=== PATIENT | male | born 1950 | race Caucasian/White ===

== ENCOUNTER 2017-05-12 09:11 | Day surgery (SDC) | payer MEDICARE, OTHER ==
[~2017-05-12] VITALS: Ht 182.9 cm; Wt 80.9 kg
[2017-05-12 09:35] VITALS: BP 135/77
[2017-05-12] MEDS ORDERED: METF1000 PO (09:48)
[2017-05-12] MEDS ORDERED: METF500T PO (09:48)
[2017-05-12] MEDS ORDERED: LOVA40TA2 PO (09:48)
[2017-05-12] MEDS ORDERED: AMIT100T PO (09:48)
[2017-05-12] MEDS ORDERED: BIVALIRUDIN 250 MG ONE (10:13)
[2017-05-12] MEDS ORDERED: HEPARIN 1,000 UNITS/ML, 10ML ONE (10:13)
[2017-05-12] MEDS ORDERED: NITROGLYCERIN 5 MG/ML, 10ML ONE (10:13)
[2017-05-12] MEDS ORDERED: FENTANYL PF 100 MCG/2ML ONE (10:13)
[2017-05-12] MEDS ORDERED: LIDOCAINE 2%, 20ML ONE (10:13)
[2017-05-12] MEDS ORDERED: MIDAZOLAM 1 MG/ML, 5ML ONE (10:13)
[2017-05-12] MEDS ORDERED: VERAPAMIL 2.5 MG/ML, 2ML ONE (10:13)
[2017-05-12] MEDS ORDERED: TICAGRELOR 90 MG TABLET ONE (10:13)
[2017-05-12] MEDS ORDERED: SODIUM CHLORIDE 0.9% 1,000 ML IV SCH (13:22)
== END 2017-05-12 15:01 ==
LOC: CACL 09:11
PROVIDERS: ATTEND Internal Medicine Cardiovascular Disease
DX: I25.10 Atherosclerotic heart disease of native coronary artery without angina pectoris (principal); I35.0 Nonrheumatic aortic (valve) stenosis; Z79.899 Other long term (current) drug therapy
CPT/HCPCS: 93460; 99156; C1769; C1894; J1644; J2250; J3010; J3490; Q9967; J0583

== ENCOUNTER → 2017-05-20 | Outpatient (CLI) | payer MEDICARE ==
[~2017-05-20] MED LIST: AMIT100T PO; LOVA40TA2 PO; METF1000 PO; METF500T PO
== END | disposition home or self-care (01) ==
LOC: CVU 06:56
PROVIDERS: ATTEND Internal Medicine Cardiovascular Disease
DX: I35.0 Nonrheumatic aortic (valve) stenosis (principal)
CPT/HCPCS: 93306

== ENCOUNTER 2017-06-10 03:53 | Inpatient (IN) | payer MEDICARE ==
[2017-06-09 14:38] LABS: MICROSCOPIC NOT IND
[2017-06-09 14:42] LABS: BASOPHILS # (AUTO) 0.03 x10^3/uL (0-0.1); BASOPHILS % (AUTO) 0 % (0-1); EOSINOPHILS # (AUTO) 0.05 x10^3/uL (0-0.4); EOSINOPHILS % (AUTO) 1 % (1-7); LYMPHOCYTES # (AUTO) 2.54 x10^3/uL (1-3.4); LYMPHOCYTES % (AUTO) 27 % (22-44); MD NO; MEAN CORPUSCULAR HGB CONC 34.3 g/dL (33.2-36.2); MONOCYTES # (AUTO) 0.61 x10^3/uL (0.2-0.8); MONOCYTES % (AUTO) 7 % (2-9); NEUTROPHILS # (AUTO) 6.14 x10^3/uL (1.8-6.8); NEUTROPHILS % (AUTO) 66 % (42-75); PLATELET COUNT 255 x10^3/uL (130-400); RED BLOOD COUNT 4.97 x10^6/uL (4.38-5.82); RED CELL DISTRIBUTION WIDTH 12.6 % (9.4-14.8)
[2017-06-09 14:50] LABS: INTERNATIONAL NORMALIZED RATIO 0.97 (0.93-1.1)
[2017-06-09 14:52] LABS: ALANINE AMINOTRANSFERASE 27 U/L (12-78); ALBUMIN 4.2 g/dL (3.4-5.0); ANION GAP 8 mmol/L (5-15); CHLORIDE 107 mmol/L (98-107); CREATININE 0.85 mg/dL (0.7-1.3)
[2017-06-09 14:55] LABS: ALKALINE PHOSPHATASE 83 U/L (45-117); BILIRUBIN,TOTAL 1.2 mg/dL (0.2-1.0); TOTAL PROTEIN 7.8 g/dL (6.4-8.2)
[2017-06-09 15:27] LABS: HEMOGLOBIN A1C 6.6 % (4.2-6.3)
[~2017-06-10] VITALS: Ht 182.9 cm; Wt 85.5 kg
[~2017-06-10 03:53] MED LIST changes: +OMEG-172 PO
[2017-06-10] MEDS ORDERED: INSULIN LISPRO 100 UNITS/ML, PEN SQ-INSULIN SCH (04:30)
[2017-06-10] MEDS ORDERED: CHLORHEXIDINE 15 ML BOTTLE MM SCH (04:30)
[2017-06-10 06:01] VITALS: BP_SYST 120; BP_SYST 134; BP_DIAS 73; BP_DIAS 79
[2017-06-10 06:47] VITALS: BP 142/89
[2017-06-10] MEDS ORDERED: HEPARIN 1,000 UNITS/ML, 10ML ONE (07:50)
[2017-06-10] MEDS ORDERED: PAPAVERINE 30 MG/ML, 2ML ONE (07:50)
[2017-06-10] MEDS: SODIUM CHLORIDE FLUSH 10ML SYR IVF SCH ×2 (07:59→19:39)
[2017-06-10] MEDS: MUPIROCIN OINT 2%, 22GM TP SCH ×2 (08:01→20:04)
[2017-06-10] MEDS ORDERED: SUFentanil 50 MCG/ML, 5ML ONE (08:47)
[2017-06-10] MEDS ORDERED: MIDAZOLAM 10MG/2 ML ONE (08:47)
[2017-06-10] MEDS ORDERED: PAPAVERINE 30 MG/ML, 2ML IV ONE (10:26)
[2017-06-10] MEDS ORDERED: HEPARIN 1,000 UNITS/ML, 10ML IV ONE (10:27)
[2017-06-10] MEDS ORDERED: ALBUMIN HUMAN 5% 500 ML IV PRN (10:30)
[2017-06-10] MEDS ORDERED: VANCOMYCIN 1,200 MG in SODIUM CHLORIDE 0.9% 250 ML IV PRN (10:30)
[2017-06-10] MEDS ORDERED: MANNITOL PMX 20% 500 ML IVPB PRN (10:30)
[2017-06-10] MEDS ORDERED: PHENYLEPHRINE 10 MG in SODIUM CHLORIDE 0.9% 249 ML IV PRN ×2 (10:30→10:31)
[2017-06-10] MEDS ORDERED: POTASSIUM CHLORIDE 80 MEQ, SODIUM BICARBONATE 8.4% 10 MEQ, MAGNESIUM SULFATE 0.5 GM, LI... IV PRN (10:30)
[2017-06-10] MEDS ORDERED: EPINEPHRINE 2 MG in SODIUM CHLORIDE 0.9% 248 ML IV SCH (10:30)
[2017-06-10] MEDS ORDERED: CEFUROXIME 1.5 GM in SODIUM CHLORIDE 0.9% 100 ML IVPB PRN (10:30)
[2017-06-10] MEDS ORDERED: DEXMEDETOMIDINE 200 MCG in SODIUM CHLORIDE 0.9% 48 ML IV SCH (10:30)
[2017-06-10] MEDS ORDERED: REGULAR INSULIN 62.5 UNITS in SODIUM CHLORIDE 0.9% 249.375 ML IV PRN ×2 (10:30→10:31)
[2017-06-10] MEDS ORDERED: DOBUTAMINE 250 MG in SODIUM CHLORIDE 0.9% 230 ML IV PRN (10:31)
[2017-06-10] MEDS ORDERED: VASOPRESSIN 50 UNIT in SODIUM CHLORIDE 0.9% 250 ML IV PRN (10:31)
[2017-06-10] MEDS ORDERED: DEXMEDETOMIDINE 200 MCG in SODIUM CHLORIDE 0.9% 48 ML IV PRN (10:31)
[2017-06-10] MEDS ORDERED: NITROGLYCERIN/D5W PMX 250 ML IV PRN (10:31)
[2017-06-10] MEDS ORDERED: SODIUM CHLORIDE 0.9% 1,000 ML IV PRN (10:31)
[2017-06-10] MEDS ORDERED: PROTAMINE SULFATE 10 MG/ML, 25ML ONE (10:42)
[2017-06-10] MEDS ORDERED: ROCURONIUM 10MG/ML,5ML ONE ×2 (10:43)
[2017-06-10] MEDS ORDERED: PROPOFOL 10 MG/ML, 20ML ONE (10:43)
[2017-06-10] MEDS ORDERED: AMINOCAPROIC ACID 250 MG/ML, 20ML ONE ×2 (10:45)
[2017-06-10] MEDS ORDERED: EPINEPHRINE 1 MG/ML, 1ML ONE (10:46)
[2017-06-10] MEDS ORDERED: PHENYLEPHRINE 10 MG/ML ONE (10:46)
[2017-06-10] MEDS ORDERED: EPINEPHRINE 2 MG in SODIUM CHLORIDE 0.9% 248 ML IV PRN (11:00)
[2017-06-10] MEDS ORDERED: DEXTROSE 50%, 50ML SYRINGE IVPush PRN (11:00)
[2017-06-10] MEDS ORDERED: DEXTROSE 4 GM TAB.CHEW PO PRN (11:00)
[2017-06-10] MEDS ORDERED: LACTATED RINGERS 1,000 ML IV PRN (11:00)
[2017-06-10] MEDS ORDERED: PROCHLORPERAZINE 5 MG/ML, 2ML IVPush PRN (11:00)
[2017-06-10] MEDS ORDERED: MIDAZOLAM 1 MG/ML, 5ML IVPush PRN (11:00)
[2017-06-10] MEDS ORDERED: GLUCAGON 1 MG IM PRN (11:00)
[2017-06-10] MEDS ORDERED: ACETAMINOPHEN 650 MG SUPP PR PRN (11:00)
[2017-06-10] MEDS ORDERED: ONDANSETRON ODT 4 MG PO PRN (11:00)
[2017-06-10] MEDS ORDERED: SODIUM BICARB 8.4%, 50ML SYRINGE IV PRN (11:00)
[2017-06-10] MEDS ORDERED: ACETAMINOPHEN 325 MG TABLET PO PRN (11:00)
[2017-06-10] MEDS ORDERED: BISACODYL 5 MG EC TABLET PO PRN (11:00)
[2017-06-10] MEDS ORDERED: INSULIN REGULAR 100 UNITS/ML, 3ML VIAL IVPush PRN (11:00)
[2017-06-10] MEDS ORDERED: BISACODYL 10 MG SUPP PR PRN (11:00)
[2017-06-10] MEDS: INSULIN LISPRO 100 UNITS/ML, PEN SQ-INSULIN SCH ×3 (11:00→21:35)
[2017-06-10] MEDS: DOCUSATE 100 MG CAPSULE PO SCH ×2 (11:23→19:39)
[2017-06-10] MEDS: KSCALE TO 4.5 IV SCH ×2 (12:00→18:00)
[2017-06-10] MEDS ORDERED: CALCIUM CHLORIDE 10%, 10ML SYR ONE (12:05)
[2017-06-10] MEDS ORDERED: VASOPRESSIN 20 UNIT/ML, 1ML ONE (12:35)
[2017-06-10] MEDS ORDERED: ALBUMIN HUMAN 25% 50 ML ONE (12:51)
[2017-06-10] MEDS ORDERED: LIDOCAINE 2% 100MG/5ML SYRINGE ONE (12:51)
[2017-06-10] MEDS ORDERED: methylPREDNISolone SOD SUCC 125 MG/2 ML ONE (12:52)
[2017-06-10] MEDS ORDERED: HEPARIN 1,000 UNITS/ML, 30ML ONE (12:53)
[2017-06-10] MEDS ORDERED: SODIUM BICARB 8.4%, 50ML SYRINGE ONE (12:53)
[2017-06-10] MEDS ORDERED: SODIUM BICARBONATE 1 MEQ/ML, 50ML VIAL ONE (12:53)
[2017-06-10 13:11] LABS: GLUCOSE BY BLOOD GAS ANALYZER 150 mg/dL (70-110); HEMOGLOBIN BY BLOOD GAS ANALYZ 11.4 g/dL (14.0-18.0); POTASSIUM BY BLOOD GAS ANALYZR 3.9 mmol/L (3.6-5.5)
[2017-06-10] MEDS ORDERED: POTASSIUM CHLORIDE PMX 100 ML IV ONE (13:30)
[2017-06-10] MEDS: MAGNESIUM SULFATE 1 GM in SODIUM CHLORIDE 0.9% 50 ML IVPB SCH (13:36)
[2017-06-10] MEDS: morphine SULFATE 10 MG/ML, 1ML IVPush PRN ×2 (15:19→17:59)
[2017-06-10] MEDS: OXYcodone IR 5MG TABLET PO PRN (16:54)
[2017-06-10] MEDS: ONDANSETRON 2MG/ML, 2ML IVPush PRN ×2 (17:54→23:52)
[2017-06-10] MEDS ORDERED: MORPHINE SULFATE 4 MG/ML, 1ML ONE (17:58)
[2017-06-10] MEDS: VANCOMYCIN 1,200 MG in SODIUM CHLORIDE 0.9% 250 ML IVPB SCH (18:31)
[2017-06-10] MEDS: MORPHINE SULFATE 4 MG/ML, 1ML IVPush PRN ×3 (20:04→23:31)
[2017-06-10] MEDS ORDERED: SODIUM CHLORIDE FLUSH 10ML SYR IVF SCH (21:00)
[2017-06-10] MEDS: MUPIROCIN OINT 2%, 22GM NAS SCH (21:00)
[2017-06-10] MEDS: HYDROcodone/APAP 5/325 TABLET PO PRN (21:35)
[2017-06-11] MEDS: INSULIN LISPRO 100 UNITS/ML, PEN SQ-INSULIN SCH ×4 (00:06→16:07)
[2017-06-11] MEDS: HYDROcodone/APAP 5/325 TABLET PO PRN ×6 (00:24→16:20)
[2017-06-11] MEDS ORDERED: MIDAZOLAM 1 MG/ML, 2ML ONE (00:34)
[2017-06-11] MEDS ORDERED: POTASSIUM CHLORIDE PMX 100 ML IV ONE (01:00)
[2017-06-11] MEDS: OXYcodone IR 5MG TABLET PO PRN ×6 (02:05→20:44)
[2017-06-11] MEDS: KSCALE TO 4.5 IV SCH ×2 (04:30)
[2017-06-11 05:10] LABS: MEAN CORPUSCULAR HEMOGLOBIN 32.5 pg (27.5-34.5); MEAN CORPUSCULAR VOLUME 95.8 fL (81-97); MEAN PLATELET VOLUME 7.6 fL (7.4-10.4); PLATELET COUNT 125 x10^3/uL (130-400); RED BLOOD COUNT 3.67 x10^6/uL (4.38-5.82); RED CELL DISTRIBUTION WIDTH 12.7 % (9.4-14.8)
[2017-06-11 05:24] LABS: CHLORIDE 111 mmol/L (98-107)
[2017-06-11 05:30] LABS: BASOPHILS # (AUTO) 0.01 x10^3/uL (0-0.1); BASOPHILS % (AUTO) 0 % (0-1); EOSINOPHILS % (AUTO) 0 % (1-7); LYMPHOCYTES # (AUTO) 0.98 x10^3/uL (1-3.4); LYMPHOCYTES % (AUTO) 6 % (22-44); MD SCAN; MONOCYTES # (AUTO) 1.58 x10^3/uL (0.2-0.8); MONOCYTES % (AUTO) 9 % (2-9); NEUTROPHILS # (AUTO) 14.95 x10^3/uL (1.8-6.8); NEUTROPHILS % (AUTO) 85 % (42-75)
[2017-06-11 05:31] LABS: ALBUMIN 3.4 g/dL (3.4-5.0); ANION GAP 9 mmol/L (5-15); CALCIUM 7.7 mg/dL (8.5-10.1); CREATININE 0.65 mg/dL (0.7-1.3)
[2017-06-11] MEDS: VANCOMYCIN 1,200 MG in SODIUM CHLORIDE 0.9% 250 ML IVPB SCH (06:08)
[2017-06-11 06:39] LABS: INTERNATIONAL NORMALIZED RATIO 1.11 (0.93-1.1); PROTHROMBIN TIME 11.4 Seconds (9.6-11.5)
[2017-06-11] MEDS: ASPIRIN 81 MG TABLET EC PO SCH (08:07)
[2017-06-11] MEDS: DOCUSATE 100 MG CAPSULE PO SCH ×2 (08:07→20:38)
[2017-06-11] MEDS: MUPIROCIN OINT 2%, 22GM TP SCH (08:08)
[2017-06-11] MEDS: MUPIROCIN OINT 2%, 22GM NAS SCH ×2 (08:08→20:38)
[2017-06-11] MEDS: SODIUM CHLORIDE FLUSH 10ML SYR IVF SCH ×3 (08:10→20:38)
[2017-06-11] MEDS ORDERED: DEXTROSE 50%, 50ML SYRINGE IVPush PRN (08:30)
[2017-06-11] MEDS ORDERED: DEXTROSE 4 GM TAB.CHEW PO PRN (08:30)
[2017-06-11] MEDS ORDERED: GLUCAGON 1 MG IM PRN (08:30)
[2017-06-11] MEDS: METOPROLOL TARTRATE 25 MG TABLET PO SCH ×2 (09:00→17:59)
[2017-06-11] MEDS: WARFARIN BIOPROSTHETIC VALVE PROTOCOL 2-3 XX SCH (09:00)
[2017-06-11] MEDS ORDERED: POTASSIUM CHLORIDE 10 MEQ TABLET.ER ONE (09:28)
[2017-06-11] MEDS ORDERED: FUROSEMIDE 20 MG TABLET ONE (09:28)
[2017-06-11] MEDS ORDERED: METOPROLOL SUCCINATE 25 MG TAB.ER.24H ONE ×2 (09:29→17:49)
[2017-06-11] MEDS ORDERED: POTASSIUM CHLORIDE 10 MEQ TABLET.ER PO SCH (09:30)
[2017-06-11] MEDS ORDERED: FUROSEMIDE 20 MG TABLET PO ONE (09:30)
[2017-06-11] MEDS: POTASSIUM CHLORIDE 10 MEQ TABLET.ER PO SCH (09:33)
[2017-06-11] MEDS: MAGNESIUM SULFATE 1 GM in SODIUM CHLORIDE 0.9% 50 ML IVPB SCH (11:42)
[2017-06-11] MEDS ORDERED: AMLODIPINE 5 MG TABLET PO ONE (12:00)
[2017-06-11] MEDS ORDERED: AMLODIPINE 5 MG TABLET ONE (12:04)
[2017-06-11] MEDS: CHLORHEXIDINE 15 ML BOTTLE MM SCH ×2 (12:08→20:45)
[2017-06-11] MEDS ORDERED: FUROSEMIDE 20 MG TABLET PO SCH (17:00)
[2017-06-11] MEDS ORDERED: FUROSEMIDE 40 MG/4 ML IV SCH (17:00)
[2017-06-11] MEDS ORDERED: WARFARIN 5 MG TABLET PO-COUM ONE (18:00)
[2017-06-11] MEDS ORDERED: INSULIN REGULAR 100 UNITS/ML, 3ML VIAL IVPush PRN (18:30)
[2017-06-11] MEDS ORDERED: AMITRIPTYLINE 25 MG TABLET ONE (20:05)
[2017-06-11 20:09] VITALS: BP 122/72
[2017-06-11] MEDS: LOVASTATIN 40 MG TABLET PO SCH (20:40)
[2017-06-11] MEDS ORDERED: SODIUM CHLORIDE FLUSH 10ML SYR IVF SCH (21:00)
[2017-06-11] MEDS ORDERED: AMITRIPTYLINE 100 MG TABLET PO SCH (21:00)
[2017-06-12] MEDS: OXYcodone IR 5MG TABLET PO PRN ×5 (01:49→19:58)
[2017-06-12] MEDS: METOPROLOL TARTRATE 25 MG TABLET PO SCH ×2 (05:17→17:31)
[2017-06-12 05:48] LABS: BASOPHILS # (AUTO) 0.02 x10^3/uL (0-0.1); BASOPHILS % (AUTO) 0 % (0-1); EOSINOPHILS % (AUTO) 0 % (1-7); INTERNATIONAL NORMALIZED RATIO 1.11 (0.93-1.1); LYMPHOCYTES % (AUTO) 10 % (22-44); MD NO; MEAN CORPUSCULAR HEMOGLOBIN 33.3 pg (27.5-34.5); MEAN CORPUSCULAR HGB CONC 34.1 g/dL (33.2-36.2); MEAN CORPUSCULAR VOLUME 97.4 fL (81-97); MEAN PLATELET VOLUME 7.4 fL (7.4-10.4); MONOCYTES # (AUTO) 1.16 x10^3/uL (0.2-0.8); MONOCYTES % (AUTO) 8 % (2-9); NEUTROPHILS # (AUTO) 11.74 x10^3/uL (1.8-6.8); NEUTROPHILS % (AUTO) 81 % (42-75); PLATELET COUNT 114 x10^3/uL (130-400); PROTHROMBIN TIME 11.4 Seconds (9.6-11.5); RED BLOOD COUNT 3.63 x10^6/uL (4.38-5.82); RED CELL DISTRIBUTION WIDTH 13.1 % (9.4-14.8)
[2017-06-12 05:54] LABS: ANION GAP 5 mmol/L (5-15); CALCIUM 8.3 mg/dL (8.5-10.1); CHLORIDE 106 mmol/L (98-107)
[2017-06-12 05:57] LABS: CREATININE 0.71 mg/dL (0.7-1.3)
[2017-06-12 06:45] VITALS: BP 129/79
[2017-06-12] MEDS: INSULIN LISPRO 100 UNITS/ML, PEN SQ-INSULIN SCH ×4 (08:30→20:06)
[2017-06-12] MEDS: POTASSIUM CHLORIDE 10 MEQ TABLET.ER PO SCH ×2 (08:31→17:30)
[2017-06-12] MEDS: FUROSEMIDE 20 MG/2 ML IV SCH ×2 (08:31→17:32)
[2017-06-12] MEDS: DOCUSATE 100 MG CAPSULE PO SCH ×2 (08:32→19:56)
[2017-06-12] MEDS: SODIUM CHLORIDE FLUSH 10ML SYR IVF SCH ×2 (08:32→19:56)
[2017-06-12] MEDS: metFORMIN 500 MG TABLET PO SCH ×2 (08:32→19:57)
[2017-06-12] MEDS: ASPIRIN 81 MG TABLET EC PO SCH (08:32)
[2017-06-12] MEDS: WARFARIN BIOPROSTHETIC VALVE PROTOCOL 2-3 XX SCH (08:33)
[2017-06-12] MEDS: MAGNESIUM HYDROXIDE 8%, 30ML UDC PO PRN (08:37)
[2017-06-12] MEDS: MUPIROCIN OINT 2%, 22GM NAS SCH ×2 (08:38→20:06)
[2017-06-12] MEDS: HYDROcodone/APAP 5/325 TABLET PO PRN ×2 (10:52→17:29)
[2017-06-12] MEDS: MAGNESIUM SULFATE 1 GM in SODIUM CHLORIDE 0.9% 50 ML IVPB SCH (11:19)
[2017-06-12] MEDS: CHLORHEXIDINE 15 ML BOTTLE MM SCH ×2 (11:20→19:57)
[2017-06-12 14:00] VITALS: BP 124/78
[2017-06-12] MEDS ORDERED: WARFARIN 5 MG TABLET PO-COUM ONE (18:00)
[2017-06-12 19:53] VITALS: BP 113/73
[2017-06-12] MEDS: LOVASTATIN 40 MG TABLET PO SCH (19:57)
[2017-06-12] MEDS: AMITRIPTYLINE 50 MG TABLET PO SCH (19:57)
[2017-06-13] MEDS: OXYcodone IR 5MG TABLET PO PRN ×3 (03:21→21:04)
[2017-06-13 03:22] VITALS: BP 148/83
[2017-06-13 04:00] LABS: ANION GAP 10 mmol/L (5-15); CALCIUM 8.3 mg/dL (8.5-10.1); CHLORIDE 103 mmol/L (98-107); CREATININE 0.79 mg/dL (0.7-1.3)
[2017-06-13 04:09] LABS: BASOPHILS # (AUTO) 0.02 x10^3/uL (0-0.1); BASOPHILS % (AUTO) 0 % (0-1); EOSINOPHILS # (AUTO) 0.01 x10^3/uL (0-0.4); EOSINOPHILS % (AUTO) 0 % (1-7); LYMPHOCYTES # (AUTO) 1.71 x10^3/uL (1-3.4); LYMPHOCYTES % (AUTO) 14 % (22-44); MD SCAN; MEAN CORPUSCULAR HEMOGLOBIN 33.3 pg (27.5-34.5); MEAN CORPUSCULAR HGB CONC 34.3 g/dL (33.2-36.2); MEAN CORPUSCULAR VOLUME 97.1 fL (81-97); MEAN PLATELET VOLUME 7.7 fL (7.4-10.4); MONOCYTES # (AUTO) 1.08 x10^3/uL (0.2-0.8); MONOCYTES % (AUTO) 9 % (2-9); NEUTROPHILS # (AUTO) 9.86 x10^3/uL (1.8-6.8); NEUTROPHILS % (AUTO) 78 % (42-75); PLATELET COUNT 120 x10^3/uL (130-400)
[2017-06-13] MEDS: METOPROLOL TARTRATE 25 MG TABLET PO SCH ×2 (05:19→17:30)
[2017-06-13] MEDS: HYDROcodone/APAP 5/325 TABLET PO PRN ×2 (05:19→17:43)
[2017-06-13 06:33] VITALS: BP 127/76
[2017-06-13] MEDS: INSULIN LISPRO 100 UNITS/ML, PEN SQ-INSULIN SCH ×4 (07:00→21:05)
[2017-06-13 08:59] LABS: INTERNATIONAL NORMALIZED RATIO 1.32 (0.93-1.1); PROTHROMBIN TIME 13.5 Seconds (9.6-11.5)
[2017-06-13] MEDS: WARFARIN BIOPROSTHETIC VALVE PROTOCOL 2-3 XX SCH (09:00)
[2017-06-13] MEDS: ASPIRIN 81 MG TABLET EC PO SCH (09:58)
[2017-06-13] MEDS: metFORMIN 500 MG TABLET PO SCH ×2 (09:58→20:56)
[2017-06-13] MEDS: DOCUSATE 100 MG CAPSULE PO SCH ×2 (09:58→20:56)
[2017-06-13] MEDS: POTASSIUM CHLORIDE 10 MEQ TABLET.ER PO SCH ×2 (09:58→17:29)
[2017-06-13] MEDS: MUPIROCIN OINT 2%, 22GM NAS SCH ×2 (09:59→21:05)
[2017-06-13] MEDS: FUROSEMIDE 20 MG/2 ML IV SCH ×2 (09:59→17:29)
[2017-06-13] MEDS: MAGNESIUM HYDROXIDE 8%, 30ML UDC PO PRN (09:59)
[2017-06-13] MEDS: SODIUM CHLORIDE FLUSH 10ML SYR IVF SCH (10:00)
[2017-06-13] MEDS: LISINOPRIL 5 MG TABLET PO SCH (10:03)
[2017-06-13 13:44] VITALS: BP 114/72
[2017-06-13] MEDS ORDERED: WARFARIN 5 MG TABLET PO-COUM ONE (18:00)
[2017-06-13 19:36] VITALS: BP 119/75
[2017-06-13] MEDS: LOVASTATIN 40 MG TABLET PO SCH (20:56)
[2017-06-13] MEDS: AMITRIPTYLINE 50 MG TABLET PO SCH (20:56)
[2017-06-14 01:38] VITALS: BP 121/74
[2017-06-14] MEDS: SODIUM CHLORIDE FLUSH 10ML SYR IVF SCH ×2 (01:47→08:52)
[2017-06-14] MEDS: OXYcodone IR 5MG TABLET PO PRN ×2 (04:01→08:50)
[2017-06-14 05:31] LABS: INTERNATIONAL NORMALIZED RATIO 1.62 (0.93-1.1); PROTHROMBIN TIME 16.7 Seconds (9.6-11.5)
[2017-06-14 05:38] LABS: ANION GAP 8 mmol/L (5-15); CALCIUM 7.9 mg/dL (8.5-10.1); CHLORIDE 105 mmol/L (98-107); CREATININE 0.71 mg/dL (0.7-1.3)
[2017-06-14] MEDS: METOPROLOL TARTRATE 25 MG TABLET PO SCH (05:45)
[2017-06-14 06:00] LABS: BASOPHILS # (AUTO) 0.03 x10^3/uL (0-0.1); BASOPHILS % (AUTO) 1 % (0-1); EOSINOPHILS # (AUTO) 0.02 x10^3/uL (0-0.4); EOSINOPHILS % (AUTO) 0 % (1-7); LYMPHOCYTES # (AUTO) 1.63 x10^3/uL (1-3.4); LYMPHOCYTES % (AUTO) 21 % (22-44); MD NO; MEAN CORPUSCULAR HEMOGLOBIN 32.9 pg (27.5-34.5); MEAN CORPUSCULAR HGB CONC 34.1 g/dL (33.2-36.2); MEAN CORPUSCULAR VOLUME 96.5 fL (81-97); MEAN PLATELET VOLUME 7.6 fL (7.4-10.4); MONOCYTES # (AUTO) 0.83 x10^3/uL (0.2-0.8); MONOCYTES % (AUTO) 11 % (2-9); NEUTROPHILS # (AUTO) 5.13 x10^3/uL (1.8-6.8); NEUTROPHILS % (AUTO) 67 % (42-75); PLATELET COUNT 132 x10^3/uL (130-400); RED BLOOD COUNT 3.43 x10^6/uL (4.38-5.82); RED CELL DISTRIBUTION WIDTH 12.7 % (9.4-14.8)
[2017-06-14] MEDS: INSULIN LISPRO 100 UNITS/ML, PEN SQ-INSULIN SCH ×2 (07:00→11:10)
[2017-06-14 07:20] VITALS: BP 125/80
[2017-06-14] MEDS: LISINOPRIL 5 MG TABLET PO SCH (08:51)
[2017-06-14] MEDS: MUPIROCIN OINT 2%, 22GM NAS SCH (08:51)
[2017-06-14] MEDS: POTASSIUM CHLORIDE 10 MEQ TABLET.ER PO SCH (08:52)
[2017-06-14] MEDS: DOCUSATE 100 MG CAPSULE PO SCH (08:52)
[2017-06-14] MEDS: WARFARIN BIOPROSTHETIC VALVE PROTOCOL 2-3 XX SCH (08:52)
[2017-06-14] MEDS: ASPIRIN 81 MG TABLET EC PO SCH (08:52)
[2017-06-14] MEDS: metFORMIN 500 MG TABLET PO SCH (08:52)
[2017-06-14] MEDS: FUROSEMIDE 20 MG/2 ML IV SCH (08:52)
[2017-06-14] MEDS ORDERED: FURO10VI37 PO (09:25)
[2017-06-14] MEDS ORDERED: POTA10TA5 PO (09:25)
[2017-06-14] MEDS ORDERED: ASPI-621 PO (09:25)
[2017-06-14] MEDS ORDERED: METO25TA35 PO (09:25)
[2017-06-14] MEDS ORDERED: LISI5TAB7 PO (09:25)
[2017-06-14] MEDS ORDERED: OXYC5TAB3 PO (09:25)
[2017-06-14] MEDS ORDERED: Warfarin Biopros Vlve Protocol PO (09:25)
[2017-06-14] MEDS: HYDROcodone/APAP 5/325 TABLET PO PRN (11:04)
== END 2017-06-14 11:37 | disposition home or self-care (01) | DRG 219 ==
LOC: 5SO 03:53 → CSU 09:22 → 5SO 06-11 18:45
PROVIDERS: ADMIT Thoracic Surgery (Cardiothoracic Vascular Surgery); ATTEND Thoracic Surgery (Cardiothoracic Vascular Surgery)
PROC: 021009W Bypass Coronary Artery, One Artery from Aorta with Autologous Venous Tissue, Open Approach (ICD-10-PCS; 2017-06-10)
PROC: 5A1221Z Performance of Cardiac Output, Continuous (ICD-10-PCS; 2017-06-10)
PROC: 02RF08Z Replacement of Aortic Valve with Zooplastic Tissue, Open Approach (ICD-10-PCS; principal; 2017-06-10 10:30)
PROC: 06BP4ZZ Excision of Right Saphenous Vein, Percutaneous Endoscopic Approach (ICD-10-PCS; 2017-06-11)
DX: I35.0 Nonrheumatic aortic (valve) stenosis (principal); J96.01 Acute respiratory failure with hypoxia; E11.9 Type 2 diabetes mellitus without complications; I25.10 Atherosclerotic heart disease of native coronary artery without angina pectoris; E78.5 Hyperlipidemia, unspecified; I10 Essential (primary) hypertension; I25.119 Atherosclerotic heart disease of native coronary artery with unspecified angina pectoris; I70.0 Atherosclerosis of aorta; Z51.5 Encounter for palliative care; Z79.84 Long term (current) use of oral hypoglycemic drugs
CPT/HCPCS: 36415; 36600; 71045; 71046; 80048; 80053; 81003; 82040; 82330; 82800; 82803; 82810; 82947; 82962; 83036; 83735; 84132; 84295; 85014; 85018; 85025; 85049; 85347; 85610; 85730; 86850; 86900; 86923; 87081; 88305; 88311; 93005; 93312; 93321; 93325; 93880; 93970; 94002; 94150; C1768; J0171; J0697; J1644; J1815; J1940; J2250; J2405; J2704; J2720; J3370; J3475; J3480; J3490; P9045; P9047; C1751; C1760; J2270; J2370; J2440; J2930; J7050; J7120